=== PATIENT | female | born 1940 | race Caucasian/White ===

== ENCOUNTER → 2018-07-03 | Outpatient (CLI) | payer MEDICARE, BC ==
--- NOTE | 2018-07-03 15:00 | RAD ---
Bilateral lower extremity arterial duplex ultrasound 07/03/2018 INDICATION: Bilateral lower extremity cramping. Cold feet. COMPARISON STUDY: None Discussion: Sonographic evaluation of the major arteries of the bilateral lower extremities was performed including color Doppler imaging spectral analysis. Normal waveforms and velocities are seen throughout the major arteries of the bilateral lower extremities. No high-grade visual stenosis is seen. No focal elevation in velocity suggestive of hemodynamically significant stenosis is identified. An irregular pulse is noted. Correlate with history of arrhythmia. IMPRESSION: 1. No evidence of hemodynamically significant stenosis is identified involving the major arteries of either lower extremity 2. Irregular pulse. Correlate with history of arrhythmia. Electronically signed by: Jayy Jones MD (07/03/2018 2:56 PM) [facility]
== END | disposition home or self-care (01) ==
LOC: US 12:36
PROVIDERS: ATTEND Family Medicine
DX: G47.62 Sleep related leg cramps (principal); M79.604 Pain in right leg; M79.605 Pain in left leg; I10 Essential (primary) hypertension
CPT/HCPCS: 93925

== ENCOUNTER → 2018-07-28 | Outpatient (CLI) | payer MEDICARE ==
--- NOTE | 2018-07-28 15:25 | CARD ---
MR#: [id number] Date of Study: 07/28/2018 Ordering Physician: GRIS SALGADO, Referring Physician: GRIS SALGADO, Tech: Vivi Bullard APPROVED REPORT EXAM: Two-dimensional and M-mode echocardiogram with Doppler and color Doppler. Other Information Quality : Average Technically limited study due to body habitus. INDICATION Hypertension/HCVD RISK FACTORS Hyperlipidemia 2D DIMENSIONS RVDd3.4 (2.9-3.5cm)Left Atrium(2D)3.6 (1.6-4.0cm) IVSd1.2 (0.7-1.1cm)Aortic Root(2D)3.4 (2.0-3.7cm) LVDd5.0 (3.9-5.9cm)LVOT Diameter2.3 (1.8-2.4cm) PWd1.3 (0.7-1.1cm)LVDs2.9 (2.5-4.0cm) FS (%) 41.2 %SV83.8 ml LVEF(%)71.8 (>50%) Aortic Valve AoV Peak Fredis.146.5cm/sAoV VTI31.4cm AO Peak GR.8.6mmHgLVOT Peak Fredis.106.9cm/s LVOT VTI 24.82cmAO Mean GR.4mmHg GAY (VMAX)2.97cg7NMV (VTI)3.20cm2 Mitral Valve MV E Bkgqnutj030.1cm/sMV DECEL CLEW892ig MV A Estqafwf25.5cm/sE/A Ratio1.5 Pulmonary Valve PV Peak Ussndnfj09.2cm/sPV Peak Grad.3mmHg Tricuspid Valve TR P. Nbriwzbs868py/sRAP VXOHKQQC5nuGd TR Peak Gr.12iyMmKKCS13alUs Pulmonary Vein S1 Jzfzezyn69.2cm/sD2 Vpgzqrjw54.1cm/s LEFT VENTRICLE The left ventricle is normal size. There is moderate concentric left ventricular hypertrophy. The lef t ventricular systolic function is normal and the ejection fraction is within normal range. The Eject ion Fraction is >55%. There is normal LV segmental wall motion. Transmitral Doppler flow pattern is G rade II-pseudonormal filling dynamics. RIGHT VENTRICLE The right ventricle is normal size. There is normal right ventricular wall thickness. The right ventr icular systolic function is normal. ATRIA The left atrium size is normal. The right atrium size is normal. The interatrial septum is intact wit h no evidence for an atrial septal defect or patent foramen ovale as noted on 2-D or Doppler imaging. AORTIC VALVE The aortic valve is thickened but opens well. Doppler and Color Flow revealed no significant aortic r egurgitation. There is no significant aortic valvular stenosis. MITRAL VALVE The mitral valve is normal in structure and function. There is no evidence of mitral valve prolapse. There is no mitral valve stenosis. Doppler and Color Flow revealed no mitral valve regurgitation note d. TRICUSPID VALVE The tricuspid valve is normal in structure and function. Doppler and Color Flow revealed no tricuspid valve regurgitation noted. There is no tricuspid valve stenosis. PULMONIC VALVE The pulmonic valve is not well visualized. Doppler and Color Flow revealed no pulmonic valvular regur gitation. GREAT VESSELS The aortic root is normal in size. The IVC is normal in size and collapses >50% with inspiration. PERICARDIAL EFFUSION There is no evidence of significant pericardial effusion. Critical Notification Critical Value: No <Conclusion> The left ventricular systolic function is normal and the ejection fraction is within normal range. Th e Ejection Fraction is >55%. There is normal LV segmental wall motion. Transmitral Doppler flow pattern is Grade II-pseudonormal filling dynamics. Signed by : Bubba Bee, Electronically Approved : 07/28/2018 15:24:54
== END | disposition home or self-care (01) ==
LOC: ECHO 12:26
PROVIDERS: ATTEND Family Medicine
DX: I11.9 Hypertensive heart disease without heart failure (principal); E78.5 Hyperlipidemia, unspecified
CPT/HCPCS: 93306

== ENCOUNTER → 2019-01-12 | Outpatient (CLI) | payer MEDICARE ==
[~2019-01-12] MED LIST: IOHEXOL 350 MG/ML 100 ML VIAL. IV ONE
--- NOTE | 2019-01-12 11:19 | RAD ---
Chest CTA History: Elevated d-dimer Technique: After bolus of intravenous contrast, CT imaging was performed of the chest. Multiplanar reconstruction images to include MIP reconstruction images are submitted. Exposure: One or more of the following individualized dose reduction techniques were utilized for this examination: 1. Automated exposure control 2. Adjustment of the mA and/or kV according to patient size 3. Use of iterative reconstruction technique. Comparison: None Findings: No pulmonary embolism is identified, somewhat limited evaluation of the smaller and more distal branches. There is no pericardial or pleural fluid or pneumothorax. There is no lobar consolidation. Heart is enlarged. There is coronary calcification. There is dilatation of the ascending thoracic aorta, tubular ascending thoracic aorta about 4.2 cm. Aortic root measures about 3.9 cm. No dissection flap is identified of the thoracic aorta. Descending thoracic aortic caliber measures about 3 cm. No significantly enlarged nodes are identified of the chest. There is a calcified right upper lobe nodule. There is also noncalcified right upper lobe nodule image 50 series 5 about 0.4 cm. There is 0.5 cm right lower lobe nodule image 74 series 5. There is a 0.4 cm right middle lobe nodule image 83 series 5. There is 0.4 cm right lower lobe nodule image 140 series 5. There is a 0.5 cm left lower lobe nodule image 109 series 5. There is tiny 0.2 cm left upper lobe nodule image 29 series 5. There is some variable multilevel thoracic degenerative disc disease. There are small fat-containing Bochdalek hernias bilaterally. Impression: 1. No pulmonary embolism is identified. 2. Heart is enlarged. There is coronary calcification. 3. There is aneurysmal dilatation of the ascending thoracic aorta up to 4.2 cm. 4. There are small bilateral pulmonary nodules as stated with the largest about 0.5 cm. Optional follow-up CT could be performed in 12 months if increased risk factors for neoplasm as per revised Fleischner guidelines, no additional follow-up needed if low risk factors. Electronically signed by: Charlie Dutton MD (01/12/2019 11:16 AM) [facility]
== END | disposition home or self-care (01) ==
LOC: CT 08:48
PROVIDERS: ATTEND Nurse Practitioner Adult Health
DX: I11.9 Hypertensive heart disease without heart failure (principal); I25.10 Atherosclerotic heart disease of native coronary artery without angina pectoris; I71.2 Thoracic aortic aneurysm, without rupture; R91.8 Other nonspecific abnormal finding of lung field; M51.34 Other intervertebral disc degeneration, thoracic region; K45.8 Other specified abdominal hernia without obstruction or gangrene
CPT/HCPCS: 71275; Q9967

== ENCOUNTER → 2019-02-02 | Outpatient (CLI) | payer MEDICARE ==
--- NOTE | 2019-02-02 11:58 | RAD ---
MR#: [id number] Date of Study: 02/02/2019 Ordering Physician: ANDRES PHAN, Referring Physician: Donovan LEE: Bere Spann APPROVED REPORT Patient Location: OUT-PATIENT Indications Uncontrolled HTN Renal Artery Doppler Right Renal Artery Left Renal Arter y Proximal 224.0/63.1 cm/secProximal 108.9/29.5 cm/sec Mid 201.6/57.0 cm/secMid 129.3/37.7 cm/sec Distal 159.8/38.7 cm/secDistal 82.0/29.7 cm/sec Renal/Aorta Ratio 2.80Renal/Aorta Ratio 1.60 Prox. Resistive Index 0.72Prox. Resistive Index 0.73 Mid Resistive Index 0.72Mid Resistive Index 0.71 Distal Resistive Index 0.76Distal Resistive Index 0.64 Renal Measurements RightLeft Kidney Length8.9 cm cmKidney Length9.9 cm cm Right Additional FindingsLeft Additional Findings Aortic Duplex A/PTransverseLongitudinal Mid Aorta 2.4cm Distal Aorta 2.0cm Aortic Doppler VelocityWaveform Mid. Aorta 80.9 cm/sec Findings Grayscale images the bilateral kidneys demonstrate small kidneys bilaterally. Correlate with body siz e and age. The right renal artery has elevated velocities but renal to aortic ratios do not demonstrate any sign ificant obstruction. Probable mild to moderate renal artery stenosis on the right side. No significan t renal artery stenosis is visualized on the left side. Normal aortic velocities. Critical Notification Critical Value: No <Conclusion> 1. Probable mild to moderate right renal artery stenosis based on velocity criteria. Otherwise no sig nificant abnormalities noted. Signed by : Bubba Bee, Electronically Approved : 02/02/2019 11:57:59
== END | disposition home or self-care (01) ==
LOC: US 08:38
PROVIDERS: ATTEND Internal Medicine Cardiovascular Disease
DX: I10 Essential (primary) hypertension (principal)
CPT/HCPCS: 76770

== ENCOUNTER → 2019-02-25 | Outpatient (CLI) | payer MEDICARE ==
[~2019-02-25] MED LIST changes: -IOHEXOL 350 MG/ML 100 ML VIAL. IV ONE; +REGADENOSON 0.4 MG/5 ML DISP.SYRIN. IV ONE
--- NOTE | 2019-02-25 11:23 | RAD ---
MR#: [id number] Date of Study: 02/25/2019 Ordering Physician: ANDRES PHAN Referring Physician: ROCIO LEE Tech: ALOK Velez APPROVED REPORT Test Type: Pharmacological Stress Nurse/Tech: ALOK Velez Test Indications: Chest discomfort Cardiac History: family HX Medications: see EHR Medical History: see EHR Resting ECG: SR Resting Heart Rate: 63 bpm Resting Blood Pressure: 136/60mmHg Pretest Chest Pain: None Nurse/Tech Notes Consent: The procedure was explained to the patient in lay terms. Informed consent was witnessed. Dyllan eout was entered into [employer]. History and Stress Test performed by ALOK Velez Pharm. Details Pharmacologic stress testing was performed using 0.4mg per 5ml of regadenoson given intravenously ove r 7-10 seconds. POST EXERCISE Reason for Termination: Infusion complete Max HR: 149 bpm Max Blood Pressure: 134/59mmHg Blood Pressure response to exercise: Normal blood pressure response during stress. Chest Pain: No. INTERPRETATION Stress EKG Conclusion: The resting EKG shows a sinus rhythm with nonspecific ST-T wave changes. The stress EKG shows no significant changes from baseline. No EKG evidence of stressed induced ischemia. Imaging Protocol IMAGE PROTOCOL: Rest Tc-99m/stress Tc-99m 1 day Rest: Stress: Viability: Radiopharm.Tc99m AdalfirujVm86v Sestamibi Sisp14tGv 34mCi Duration 15min. 10min. Img Date 02/25/2019 02/25/2019 Inj-Img Heqf30mgh. 60min. Rest Admin Site:IV - Right AntecubitalAdministrator: ALOK Velez Stress Admin Site: IV - Right AntecubitalAdministrator: ALOK Velez STRESS DATA End Diast. Vol.93.0mlAv. Heart Rate81.0bpm LVEDV index BSA45.0mlCardiac Output0.0L/min End Syst. Vol.19.0mlCO Index BSA0.0L/min LVESV index BSA9.0mlMyocardial Cinb225.0g Eject. Scmbwmox19.0% Stress Rates Pk. Fill Rate2.54EDV/secLVtime Pk. Fill 122.16msec Pk. Empty Rate4.17ESV/secLVtime Pk. Vwfew249.53msec / Pk. Fill1.72EDV/sec Stress Scores Regional WT0.00Summed WT4.00 Regional WM0.00Summed WM1.00 LV Perfusion The stress scans showed no significant defects. The rest scans showed no significant defects. Nuclear imaging shows no reversible ischemia or infarct. Wall Motion Left ventricular systolic function is normal with no regional wall motion abnormalities and an ejecti on fraction of greater than 70%. LV Perf. Quant 17 Seg. SSS0.00 17 Seg. SRS1.00 17 Seg. SDS0.00 Stress Defect Extent (% LAD)0.00Rest Defect Extent (% LAD)0.00Rev. Defect Extent (% LAD)0.00 Stress Defect Extent (% LCX) 0.00Rest Defect Extent (% LCX)0.00Rev. Defect Extent (% LCX)0.00 Stress Defect Extent (% RCA)0.00Rest Defect Extent (% RCA)0.00Rev. Defect Extent (% RCA)0.00 Stress Defect Extent (% VIKTORIYA)0.00Rest Defect Extent (% VIKTORIYA)0.00Rev. Defect Extent (% VIKTORIYA)0.00 Conclusion 1. No EKG evidence of stressed induced ischemia. 2. Nuclear imaging shows no reversible ischemia or infarct. 3. Normal left ventricular systolic function with an ejection fraction of greater than 70%. 4. Low risk Lexiscan nuclear stress test. Signed by : Noe Ritter MD Electronically Approved : 02/25/2019 11:22:59
== END | disposition home or self-care (01) ==
LOC: NM 07:36
PROVIDERS: ATTEND Internal Medicine Cardiovascular Disease
DX: R07.9 Chest pain, unspecified (principal); Z82.49 Family history of ischemic heart disease and other diseases of the circulatory system
CPT/HCPCS: 78452; 93017; A9500

== ENCOUNTER 2019-12-27 21:16 | Emergency (ER) | payer MEDICARE ==
[~2019-12-27] VITALS: Ht 167.6 cm; Wt 100.0 kg
--- NOTE | 2019-12-27 21:28 | PHYS DOC ---
Past History Past Medical History: High Cholesterol, Hypertension Past Surgical History: Tonsillectomy Smoking: Non-smoker Alcohol Use: None General Adult EDM: Chief Complaint: CHEST PAIN HPI: HPI: Patient is a 79 year old female who presents for evaluation of right and left- sided chest pain and chest pressure. Onset since about 8:30 PM tonight while watching TV. Patient states it felt like "heartburn". Patient denies shortness of air. However she had sweats on arrival. Patient denied dizziness. Blood pressure elevated at 195/108. Remainder of sats are unremarkable. Patient had a recent CT scan of her chest for evaluation of pulmonary nodules. Dr. Salgado is her physician Review of Systems: Review of Systems: Constitutional: Denies fever or chills Eyes: Denies change in visual acuity HENT: Denies nasal congestion or sore throat Respiratory: Denies cough or shortness of breath Cardiovascular: has chest pain and edema GI: Denies abdominal pain, nausea, vomiting, bloody stools or diarrhea : Denies dysuria Musculoskeletal: Denies back pain or joint pain Integument: Denies rash Neurologic: Denies headache, focal weakness or sensory changes Endocrine: Denies polyuria or polydipsia Lymphatic: Denies swollen glands Psychiatric: Denies depression or anxiety Heart Score: HEART Score for Chest Pain: HEART Score for Chest Pain Response (Comments) Value History Moderately Suspicious 1 ECG Nonspecific Repolarizatio 1 Age > 65 2 Risk Factors 1 or 2 Risk Factors 1 Troponin < Normal Limit 0 Total 5 Risk Factors: Risk Factors: DM, Current or recent (<one month) smoker, HTN, HLP, family history of CAD, obesity. Risk Scores: Score 0 - 3: 2.5% MACE over next 6 weeks - Discharge Home Score 4 - 6: 20.3% MACE over next 6 weeks - Admit for Clinical Observation Score 7 - 10: 72.7% MACE over next 6 weeks - Early Invasive Strategies Allergies: Allergies: Allergies Coded Allergies Type Severity Reaction Last Updated Verified No Known Drug Allergies 01/12/19 No Physical Exam: PE: Constitutional: Well developed, well nourished, mild acute distress, non-toxic appearance. [] HENT: Normocephalic, atraumatic, bilateral external ears normal, oropharynx moist, no oral exudates, nose normal. [] Eyes: PERRL, EOMI, conjunctiva normal, no discharge. [] Neck: Normal range of motion, no tenderness, supple, no stridor. [] Cardiovascular:Heart rate regular rhythm, no murmur [] Lungs & Thorax: Bilateral breath sounds clear to auscultation [] Abdomen: Bowel sounds normal, soft, no tenderness, no masses, no pulsatile masses. [] Skin: Warm, dry, no erythema, no rash. [] Back: No tenderness. [] Extremities: No tenderness, no cyanosis, no clubbing, ROM intact, no edema. [] Neurologic: Alert and oriented X 3, normal motor function, normal sensory function, no focal deficits noted. [] Psychologic: Affect normal, judgement normal, mood normal. [] Current Patient Data: Labs: Laboratory Tests Test 12/27/19 21:35 12/27/19 21:57 White Blood Count 9.1 x10^3/uL Red Blood Count 4.11 x10^6/uL Hemoglobin 12.0 g/dL Hematocrit 36.1 % Mean Corpuscular Volume 88 fL Mean Corpuscular Hemoglobin 29 pg Mean Corpuscular Hemoglobin Concent 33 g/dL Red Cell Distribution Width 14.1 % Platelet Count 232 x10^3/uL Neutrophils (%) (Auto) 48 % Lymphocytes (%) (Auto) 36 % Monocytes (%) (Auto) 10 % Eosinophils (%) (Auto) 6 % Basophils (%) (Auto) 1 % Neutrophils # (Auto) 4.3 x10^3uL Lymphocytes # (Auto) 3.2 x10^3/uL Monocytes # (Auto) 0.9 x10^3/uL Eosinophils # (Auto) 0.5 x10^3/uL Basophils # (Auto) 0.1 x10^3/uL Sodium Level 142 mmol/L Potassium Level 2.5 mmol/L Chloride Level 102 mmol/L Carbon Dioxide Level 29 mmol/L Anion Gap 11 Blood Urea Nitrogen 24 mg/dL Creatinine 1.3 mg/dL Estimated GFR (Cockcroft-Gault) 39.5 BUN/Creatinine Ratio 18 Glucose Level 109 mg/dL Calcium Level 9.2 mg/dL Total Bilirubin 0.4 mg/dL Aspartate Amino Transf (AST/SGOT) 27 U/L Alanine Aminotransferase (ALT/SGPT) 31 U/L Alkaline Phosphatase 89 U/L Troponin I Quantitative 0.115 ng/mL Total Protein 7.1 g/dL Albumin 3.7 g/dL Albumin/Globulin Ratio 1.1 Lipase 73 U/L Magnesium Level 1.8 mg/dL Current Medications Medications (Trade) Dose Ordered Sig/Ariel Route PRN Reason Start Time Stop Time Status Last Admin Dose Admin Aspirin (Aspirin Chewable) 324 mg 1X ONCE PO 12/27/19 21:45 12/27/19 21:46 DC 12/27/19 21:46 Fentanyl Citrate (Fentanyl 2ml Vial) 25 mcg PRN Q15MIN PRN IV PAIN GREATER THAN 3/10 12/27/19 21:45 12/28/19 21:44 12/27/19 21:47 Sodium Chloride 1,000 ml @ 100 mls/hr Q10H IV 12/27/19 21:32 12/28/19 07:31 12/27/19 21:47 Hydralazine HCl (Apresoline) 10 mg 1X ONCE IV 12/27/19 21:45 12/27/19 21:46 DC 12/27/19 21:47 Morphine Sulfate (Morphine 4mg Syringe) 4 mg 1X ONCE IV 12/27/19 22:15 12/27/19 22:23 DC 12/27/19 22:11 Potassium Chloride (Klor-Con) 40 meq 1X ONCE PO 12/27/19 22:15 12/27/19 22:23 DC 12/27/19 22:12 EKG: EKG: EKG showed normal sinus rhythm, rate 91, nonspecific ST segment changes and cannot exclude old ST segment changes or inferior lateral ischemia, ST segment depression in V5 and V6, flattened T wave in aVF, possible left ventricular strain, not STEMI read at 9:28 PM [] Radiology/Procedures: Radiology/Procedures: [address] [address] IMAGING REPORT Signed PATIENT: ALAN TAYLOR EACCOUNT: [id number] : 1940 LOCATION: ER AGE: 79 SEX: F EXAM STATUS: PRE ER ORD. PHYSICIAN: OLGA DOW DO REASON: chest pain PROCEDURE: PORTABLE CHEST 1V Exam: Chest one healed INDICATION: Chest pain TECHNIQUE: Frontal view of the chest Comparisons: None FINDINGS: Heart is enlarged. Pulmonary vessels are prominent. Hazy opacities in lungs bilaterally. No pleural effusion. IMPRESSION: Findings likely related to pulmonary edema. Electronically signed by: Evelin Kwon MD (12/27/2019 10:09 PM) [id number] DICTATED AND SIGNED BY: EVELIN KWON MD DATE: 12/27/192208 CC: GRIS SALGADO MD; OLGA DOW DO ~ [] Impressions: [place] [address] IMAGING REPORT Signed PATIENT: ALAN TAYLOR EACCOUNT: [id number] : 1940 LOCATION: CT AGE: 78 SEX: F EXAM STATUS: REG CLI ORD. PHYSICIAN: SHALONDA COOL NP REASON: ELEVATED D DIMER, OMNI 350, 100ml PROCEDURE: CT ANGIOGRAPHY CHEST Chest CTA History: Elevated d-dimer Technique: After bolus of intravenous contrast, CT imaging was performed of the chest. Multiplanar reconstruction images to include MIP reconstruction images are submitted. Exposure: One or more of the following individualized dose reduction techniques were utilized for this examination: 1. Automated exposure control 2. Adjustment of the mA and/or kV according to patient size 3. Use of iterative reconstruction technique. Comparison: None Findings: No pulmonary embolism is identified, somewhat limited evaluation of the smaller and more distal branches. There is no pericardial or pleural fluid or pneumothorax. There is no lobar consolidation. Heart is enlarged. There is coronary calcification. There is dilatation of the ascending thoracic aorta, tubular ascending thoracic aorta about 4.2 cm. Aortic root measures about 3.9 cm. No dissection flap is identified of the thoracic aorta. Descending thoracic aortic caliber measures about 3 cm. No significantly enlarged nodes are identified of the chest. There is a calcified right upper lobe nodule. There is also noncalcified right upper lobe nodule image 50 series 5 about 0.4 cm. There is 0.5 cm right lower lobe nodule image 74 series 5. There is a 0.4 cm right middle lobe nodule image 83 series 5. There is 0.4 cm right lower lobe nodule image 140 series 5. There is a 0.5 cm left lower lobe nodule image 109 series 5. There is tiny 0.2 cm left upper lobe nodule image 29 series 5. There is some variable multilevel thoracic degenerative disc disease. There are small fat-containing Bochdalek hernias bilaterally. Impression: 1. No pulmonary embolism is identified. 2. Heart is enlarged. There is coronary calcification. 3. There is aneurysmal dilatation of the ascending thoracic aorta up to 4.2 cm. 4. There are small bilateral pulmonary nodules as stated with the largest about 0.5 cm. Optional follow-up CT could be performed in 12 months if increased risk factors for neoplasm as per revised Fleischner guidelines, no additional follow-up needed if low risk factors. Electronically signed by: Felipe Sparks MD (01/12/2019 11:16 AM) [id number] DICTATED AND SIGNED BY: FELIPE SPARKS MD DATE: 01/12/19 1119 CC: GRIS SALGADO MD; SHALONDA COOL NP ~ Course & Med Decision Making: Course & Med Decision Making Pertinent Labs and Imaging studies reviewed. (See chart for details) [] Dragon Disclaimer: Dragon Disclaimer: This electronic medical record was generated, in whole or in part, using a voice recognition dictation system. 2211 Dr. Salgado, patient's physician was called to discuss case. A lot of the fact that she has an ascending aneurysm 4.2 cm and intractable chest pain as well as an elevated troponin we agreed the patient need to be transferred to a higher level care hospital. Patient is selected [facility] as her hospital of choice. Their hospitalist service was called to discuss case 2223 hospitalist (Dr. Leah Chávez) from [facility] called back to discuss case. Patient accepted to their ICU for admission 2229 blood pressure improved to 173/100. Patient's was notified at patient's request. He is heading to [place] now. There is some minimal improvement in her chest pain. 2323 [place] [facility] [employer] [employer] has called back and asked if we really want to send the patient to that hospital. Apparently they do not have cardiothoracic surgery capability at this time. Hospitalist service was paged again to discuss case 2329 Dr. Chávez called back and we discussed the case at length. In light of the fact of a stable CT scan chest from earlier today we do not feel the patient is acutely dissecting. Patient can be managed at [facility] for treatment of uncontrolled hypertension. It should be noted the patient appears to be in and out of atrial fibrillation but is rate controlled at 110. Patient given dose of IV hydralazine push at this time, repeat hydralazine dose canceled Departure Departure: Impression: Primary Impression: Precordial chest pain Additional Impressions: Thoracic aortic aneurysm Qualified Codes: I71.2 - Thoracic aortic aneurysm, without rupture Elevated troponin Hypertensive urgency Hypokalemia Atrial fibrillation Qualified Codes: I48.0 - Paroxysmal atrial fibrillation Disposition: 05 TRANSFER OTHER ([facility] under care of Dr. Leah Chávez) Condition: STABLE Referrals: GRIS SALGADO MD (PCP) Justification of Admission: Justification of Admission: Justification of Admission Dx: Yes CHF: Hemodynamic Instability Angina: Symp at Rest Critical Care Time Critical care time was 30 minutes exclusive of procedures. This included talking to patient physician, accepting physician at [facility], reviewing labs, talking to the patient etc. OLGA DOW DO Dec 27, 2019 21:28
[2019-12-27] MEDS ORDERED: IV NORMAL SALINE 1,000ML 1,000 ML IV SCH (21:32)
[2019-12-27] MEDS ORDERED: ASPIRIN CHEWABLE 81 MG TABLET. PO ONE (21:45)
[2019-12-27] MEDS ORDERED: hydrALAZINE 20 MG/ML VIAL. IV ONE ×2 (21:45→23:30)
[2019-12-27 21:50] LABS: BASO # 0.1 x10^3/uL (0.0-0.2); BASO % 1 % (0-3); EOS # 0.5 x10^3/uL (0.0-0.7); EOS % 6 % (0-3); HEMATOCRIT 36.1 % (36.0-47.0); LYMPH # 3.2 x10^3/uL (1.0-4.8); LYMPH % 36 % (24-48); MEAN CORPUSCULAR HEMOGLOBIN 29 pg (25-35); MEAN CORPUSCULAR HGB CONC 33 g/dL (31-37); MEAN CORPUSCULAR VOLUME 88 fL (79-100); MONO # 0.9 x10^3/uL (0.0-1.1); MONO % 10 % (0-9); NEUT # 4.3 x10^3uL (1.8-7.7); NEUT % 48 % (31-73); PLATELET COUNT 232 x10^3/uL (140-400); RED BLOOD COUNT 4.11 x10^6/uL (3.50-5.40); RED CELL DISTRIBUTION WIDTH 14.1 % (11.5-14.5); WHITE BLOOD COUNT 9.1 x10^3/uL (4.0-11.0)
[2019-12-27 22:03] LABS: ALBUMIN 3.7 g/dL (3.4-5.0); ALBUMIN/GLOBULIN RATIO 1.1 (1.0-1.7); CALCIUM 9.2 mg/dL (8.5-10.1); CREATININE 1.3 mg/dL (0.6-1.0); GFR 39.5; TOTAL BILIRUBIN 0.4 mg/dL (0.2-1.0); TOTAL PROTEIN 7.1 g/dL (6.4-8.2)
[2019-12-27 22:07] LABS: POTASSIUM 2.5 mmol/L (3.5-5.1)
--- NOTE | 2019-12-27 22:11 | RAD ---
Exam: Chest one healed INDICATION: Chest pain TECHNIQUE: Frontal view of the chest Comparisons: None FINDINGS: Heart is enlarged. Pulmonary vessels are prominent. Hazy opacities in lungs bilaterally. No pleural effusion. IMPRESSION: Findings likely related to pulmonary edema. Electronically signed by: Evelin Ortiz MD (12/27/2019 10:09 PM) [id number]
--- NOTE | 2019-12-27 22:13 | EKG ---
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
[2019-12-27] MEDS ORDERED: POTASSIUM CHLORIDE 20 MEQ TABLET.ER. PO ONE (22:15)
[2019-12-27] MEDS ORDERED: MORPHINE SULFATE 4 MG/ML DISP.SYRIN. IV ONE (22:15)
[2019-12-27] MEDS ORDERED: LORazepam 1 MG TABLET PO ONE (23:00)
[2019-12-27] MEDS ORDERED: dilTIAZem 25 MG/5 ML VIAL IVP ONE (23:45)
[2019-12-27 23:55] VITALS: BP 116/56
== END 2019-12-28 | disposition short-term general hospital (02) ==
LOC: ER 21:16
DX: I48.20 Chronic atrial fibrillation, unspecified (principal); I71.2 Thoracic aortic aneurysm, without rupture; R07.2 Precordial pain; I16.0 Hypertensive urgency; R79.89 Other specified abnormal findings of blood chemistry; E87.6 Hypokalemia; E78.00 Pure hypercholesterolemia, unspecified; I10 Essential (primary) hypertension; Z90.89 Acquired absence of other organs; Z79.899 Other long term (current) drug therapy
CPT/HCPCS: 36415; 71045; 80053; 83690; 83735; 84484; 85025; 93005; 96374; 96375; 99291; J0360; J2270; J3010; J3490; J7030

== ENCOUNTER → 2020-02-02 | Outpatient (CLI) | payer MEDICARE ==
--- NOTE | 2020-02-02 10:10 | RAD ---
EXAM: Left lower extremity venous Doppler. HISTORY: Left lower extremity pain/swelling. COMPARISON: None. FINDINGS: Grayscale and Doppler analysis of the left lower extremity deep venous system was performed with graded compression and augmentation. The common femoral, greater saphenous, superficial femoral, popliteal and calf veins were assessed. There is no evidence of deep venous thrombosis. IMPRESSION: 1. No evidence of deep venous thrombosis. Electronically signed by: Edgar Pham MD (02/02/2020 10:06 AM) [id number]
== END | disposition home or self-care (01) ==
LOC: US 09:34
PROVIDERS: ATTEND Family Medicine
DX: I82.432 Acute embolism and thrombosis of left popliteal vein (principal); R22.42 Localized swelling, mass and lump, left lower limb
CPT/HCPCS: 93971